=== PATIENT | female | born 1945 | race Two or more races ===

== ENCOUNTER 2020-01-03 14:21 | Emergency (ER) | payer OTHER ==
[~2020-01-03] VITALS: Ht 152.4 cm; Wt 63.5 kg
[2020-01-05] MEDS ORDERED: TRAMADO PO (08:19)
== END 2020-01-03 17:53 | disposition home or self-care (01) ==
LOC: ER 14:21
DX: S52.591A Other fractures of lower end of right radius, initial encounter for closed fracture (principal); W18.39XA Other fall on same level, initial encounter; Y93.89 Activity, other specified; Y92.098 Other place in other non-institutional residence as the place of occurrence of the external cause; Y99.8 Other external cause status

== ENCOUNTER 2020-01-09 06:00 | Day surgery (SDC) | payer OTHER ==
[~2020-01-09 06:00] MED LIST: TRAMADO PO
== END 2020-01-09 14:27 | disposition home or self-care (01) ==
LOC: CIR.AMB 06:00
PROVIDERS: ATTEND Orthopaedic Surgery
DX: S52.531A Colles' fracture of right radius, initial encounter for closed fracture (principal); M65.4 Radial styloid tenosynovitis [de Quervain]; Z20.828 Contact with and (suspected) exposure to other viral communicable diseases
CPT/HCPCS: 25609; 20902; 25118; C1776

== ENCOUNTER → 2020-01-25 07:53 | Outpatient (CLI) | payer OTHER | END | disposition home or self-care (01) | LOC: LAB 07:53 | PROVIDERS: ATTEND Orthopaedic Surgery | DX: M85.88 Other specified disorders of bone density and structure, other site (principal); E55.9 Vitamin D deficiency, unspecified; E21.2 Other hyperparathyroidism; E88.89 Other specified metabolic disorders; M81.8 Other osteoporosis without current pathological fracture; E56.1 Deficiency of vitamin K ==

== ENCOUNTER 2020-02-07 13:57 | Outpatient (CLI) | payer OTHER | END 2020-02-07 14:12 | disposition home or self-care (01) | LOC: NUCLEAR 13:57 | PROVIDERS: ATTEND Orthopaedic Surgery | DX: M81.0 Age-related osteoporosis without current pathological fracture (principal) ==

== ENCOUNTER → 2020-06-07 | Outpatient (CLI) | payer OTHER | END | disposition home or self-care (01) | LOC: MAMO-SONO 09:15 → SONOGRAMA 09:45 | PROVIDERS: ATTEND Physical Medicine & Rehabilitation | DX: E04.1 Nontoxic single thyroid nodule (principal); E03.8 Other specified hypothyroidism; E21.2 Other hyperparathyroidism ==

== ENCOUNTER 2020-06-11 10:35 | Outpatient (CLI) | payer OTHER | END 2020-06-11 10:41 | disposition home or self-care (01) | LOC: LAB 10:35 | PROVIDERS: ATTEND Physical Medicine & Rehabilitation | DX: E03.8 Other specified hypothyroidism (principal); E21.2 Other hyperparathyroidism ==

== ENCOUNTER → 2023-04-22 | Emergency (ER) | payer OTHER ==
[~2023-04-22] VITALS: Ht 152.4 cm; Wt 64.4 kg
[~2023-04-22] MED LIST changes: +TUSNEL LIQUID178 ML PO; +ZITHROMAX500 MG PO
[2023-04-22 10:49] LABS: HEMOGLOBIN 12.9 g/dL (12.0-15.00); MEAN CELL VOLUME 91.4 fL (80.00-100.00); MEAN CORPUSCULAR HEMOGLOBIN 31.1 pg (27.00-32.0); PLATELET COUNT 219 K/uL (150-450); RED BLOOD COUNT 4.15 M/uL (4.00-6.00); RED CELL DISTRIBUTION WIDTH 13.3 % (11.5-14.5)
[2023-04-22 11:17] LABS: ALBUMIN 3.4 gm/dL (3.4-5.0); BILIRUBIN TOTAL 0.44 mg/dL (0.3-1.2); CALCIUM 9.2 mg/dL (8.5-10.1); CREATININE SERUM 1.04 mg/dL (0.55-1.02); GFR 51.38; GLOBULINA 4.1 G/DL (2.4-3.5); POTASSIUM 4.91 mEq/L (3.5-5.1); TOTAL PROTEIN 7.5 gm/dL (6.4-8.2)
== END | disposition home or self-care (01) ==
LOC: ER 09:16
PROVIDERS: General Practice
DX: R05.8 Other specified cough (principal); Z20.822 Contact with and (suspected) exposure to COVID-19
CPT/HCPCS: 36415; 71046; 94640; 96365; 99285; J2930

== ENCOUNTER 2024-03-31 13:22 | Outpatient (CLI) | payer OTHER | END 2024-03-31 13:23 | disposition home or self-care (01) | LOC: NUCLEAR 13:22 | PROVIDERS: ATTEND Internal Medicine Cardiovascular Disease | DX: M81.0 Age-related osteoporosis without current pathological fracture (principal); E55.9 Vitamin D deficiency, unspecified ==

== ENCOUNTER 2024-04-26 09:12 | Outpatient (CLI) | payer OTHER ==
[2024-04-26 09:53] LABS: HEMATOCRIT 38.5 % (36.0-45.00); HEMOGLOBIN 12.7 g/dL (12.0-15.00); MEAN CELL VOLUME 96.9 fL (80.00-100.00); PLATELET COUNT 206 K/uL (150-450); RED BLOOD COUNT 3.97 M/uL (4.00-6.00); RED CELL DISTRIBUTION WIDTH 14.1 % (11.5-14.5)
[2024-04-26 10:22] LABS: PH,URINE 6.5 (5.0-8.0); URINE APPEARANCE Clear; URINE BILIRRUBIN Negative (NEGATIVE); URINE BLOOD Small; URINE COLOR Yellow; URINE GLUCOSE Negative (NEGATIVE); URINE KETONE Negative (NEGATIVE); URINE LEUKOCYTE Small; URINE NITRATE Negative; URINE PROTEIN Trace (NEGATIVE); URINE UROBILINOGEN 0.2 E.U./dl
[2024-04-26 10:23] LABS: URINE BACTERIA 22.6 uL (0.0-1933); URINE EPITHELIAL CELLS 5.7 uL (0.0-38.8); URINE WBC 15.9 uL (0.0-23.2)
[2024-04-26 10:28] LABS: URINE CAST 0.15 uL (0.0-1.40)
[2024-04-26 11:15] LABS: ob NEGATIVE (NEGATIVE)
[2024-04-26 11:34] LABS: ALBUMIN 3.5 gm/dL (3.4-5.0); BILIRUBIN TOTAL 0.48 mg/dL (0.3-1.2); CALCIUM 9.1 mg/dL (8.5-10.1); CREATININE SERUM 1.04 mg/dL (0.55-1.02); GFR 51.25; GLOBULINA 3.3 G/DL (2.4-3.5); POTASSIUM 4.45 mEq/L (3.5-5.1); T4 TOTAL 9.43 UG/DL (4.8-13.9); TOTAL PROTEIN 6.8 gm/dL (6.4-8.2)
[2024-04-26 11:35] LABS: TSH 7.17 uIU/mL (0.358-3.74)
[2024-04-26 11:44] LABS: T3 TOTAL 1.15 ng/ml (0.846-2.02); VITAMIN D3 25 HYDROXY 41.44 ng/ml (30-120)
== END 2024-04-26 09:13 | disposition home or self-care (01) ==
LOC: RAD 09:12
PROVIDERS: ATTEND Internal Medicine Cardiovascular Disease
DX: I10 Essential (primary) hypertension (principal); E11.9 Type 2 diabetes mellitus without complications; E03.9 Hypothyroidism, unspecified; E78.2 Mixed hyperlipidemia; D64.0 Hereditary sideroblastic anemia; Z12.11 Encounter for screening for malignant neoplasm of colon; E55.9 Vitamin D deficiency, unspecified; M81.0 Age-related osteoporosis without current pathological fracture; J44.9 Chronic obstructive pulmonary disease, unspecified